=== PATIENT | female | born 1970 | race Caucasian/White ===

== ENCOUNTER 2021-03-05 12:20 | Emergency (ER) | payer OTHER, BC ==
[~2021-03-05 12:20] MED LIST: ASPIR-LOW81 MG PO; GLUCOPHAGE 500500 MG PO; GLUCOPHAGE 850850 MG PO; GLUCOTROL5 MG PO; KEFLEX CAP 500500 MG PO; LIPITOR TAB 1010 MG PO; LOPRESSOR 25 MG25 MG PO; LOPRESSOR 50 MG50 MG PO; PRINIVIL20 MG PO; TRESIBA FL100 UNIT/1 SQ
[2021-03-05 14:47] LABS: HEMOGLOBIN 15.7 gm/dl (12.3-15.3); RED BLOOD COUNT 5.11 M/UL (4.00-5.10); WHITE BLOOD COUNT 9.6 K/UL (4.5-11.0)
[2021-03-05 15:13] LABS: BUN/CREATININE RATIO 15 (0-10)
[2021-03-05] MEDS ORDERED: IBUPROFEN800 MG PO (17:08)
[2021-03-05] MEDS ORDERED: CYCLOBENZAPRINE5 MG PO (17:08)
== END 2021-03-05 17:35 | disposition home or self-care (01) ==
LOC: ER1 12:20
PROVIDERS: Emergency Medicine
DX: S33.5XXA Sprain of ligaments of lumbar spine, initial encounter (principal); V49.50XA Passenger injured in collision with unspecified motor vehicles in traffic accident, initial encounter; Y92.410 Unspecified street and highway as the place of occurrence of the external cause; F17.290 Nicotine dependence, other tobacco product, uncomplicated
CPT/HCPCS: 70450; 71260; 72125; 72128; 72131; 80053; 84484; 85025; 85610; 85730; 96374; 96375; 96376; 99283; J2270; J2405; J7030; Q9967

== ENCOUNTER 2022-07-02 08:56 | Emergency (ER) | payer BC ==
[~2022-07-02 08:56] MED LIST changes: +CYCLOBENZAPRINE5 MG PO; +IBUPROFEN800 MG PO
[2022-07-02 09:53] LABS: HEMOGLOBIN 16.5 gm/dl (12.3-15.3); RED BLOOD COUNT 5.48 M/UL (4.00-5.10); WHITE BLOOD COUNT 8.2 K/UL (4.5-11.0)
[2022-07-02 10:07] LABS: BUN/CREATININE RATIO 21 (0-10)
[2022-07-02 11:29] LABS: ADENOVIRUS F 40/41 Not Detected (Negative); ASTROVIRUS Not Detected (Negative); CAMPYLOBACTER Not Detected (Negative); CRYPTOSPORIDIUM Not Detected (Negative); E.COLI 0157 Not Detected (Negative); ENTAMOEBA HISTOLYTICA Not Detected (Negative); ENTEROAGGREGATIVE E.COLI (EAEC Not Detected (Negative); ENTEROPATHOGENIC E.COLI (EPEC) Not Detected (Negative); ENTEROTOXIGENIC E.COLI (ETEC) Not Detected (Negative); GIARDIA LAMBLIA Not Detected (Negative); NOROVIRUS GI/GII Not Detected (Negative); PLESIOMONAS SHIGELLOIDES Not Detected (Negative); ROTOVIRUS A Not Detected (Negative); SALMONELLA Not Detected (Negative); SAPOVIRUS Not Detected (Negative); SHIG/ENTEROINVAS.ECOLI (EIEC) Not Detected (Negative); SHIGA-LIK TOX.PRO.E.COLI (STEC Not Detected (Negative); VIBRIO Not Detected (Negative); VIBRIO CHOLERAE Not Detected (Negative); YERSINIA ENTEROCOLITICA Not Detected (Negative)
[2022-07-02 13:44] LABS: CLOSTRIDIUM DIFFICILE TOX A/B Not Detected (Negative)
[2022-07-02] MEDS ORDERED: ZOFRAN 4 MG TAB4 MG PO (13:57)
== END 2022-07-02 14:20 | disposition home or self-care (01) ==
LOC: ER1 08:56
PROVIDERS: Physician Assistant Medical
DX: R11.2 Nausea with vomiting, unspecified (principal); R19.7 Diarrhea, unspecified; E11.9 Type 2 diabetes mellitus without complications; I10 Essential (primary) hypertension; Z79.4 Long term (current) use of insulin; F17.290 Nicotine dependence, other tobacco product, uncomplicated; Z20.822 Contact with and (suspected) exposure to COVID-19
CPT/HCPCS: 80053; 81001; 83690; 85025; 87507; 96374; 96376; 99284; J2405; U0002